=== PATIENT | male | born 1985 | race Hispanic/Latino ===

== ENCOUNTER 2022-08-20 05:55 | Day surgery (SDC) | payer OTHER ==
[2022-08-16 12:24] VITALS: BMI 40.5
[2022-08-20] MEDS ORDERED: Vancomycin 1 GM VIAL ONE (06:34)
[2022-08-20] MEDS ORDERED: fentaNYL PF 100 MCG/2 ML SYRINGE ONE (06:53)
[2022-08-20] MEDS ORDERED: Dexmedetomidine 200 MCG/2 ML VIAL ONE (06:53)
[2022-08-20] MEDS ORDERED: SUGAMMADEX SODIUM 200 MG/2 ML VIAL ONE (06:53)
[2022-08-20] MEDS ORDERED: Sodium Chloride 0.9% 100 ML ONE (07:11)
[2022-08-20] MEDS ORDERED: CEFAZOLIN 2 GM VIAL ONE (07:11)
[2022-08-20 07:26] LABS: #Basophils 0.1 thou/uL (0.0-0.2); #Eosinphils 0.2 thou/uL (0.0-0.7); #Lymphocytes 1.9 thou/uL (1.20-3.40); #Monocytes 0.4 thou/uL (0.11-0.59); #Neutrophils 3.8 thou/uL (1.40-6.50); %Basophils 0.8 % (0.0-1.0); %Eosinophils 3.9 % (0.0-10.0); %Lymphocytes 30.3 % (21.0-51.0); Hemoglobin 15.4 g/dL (14.0-18.0); Mean Corpuscular HGB CONC 33.8 g/dL (32.0-36.0); Mean Corpuscular Hemoglobin 30.8 pg (27.0-31.0); Mean Corpuscular Volume 91.1 fl (78.0-98.0); Mean Platelet Volume 9.5 fL (7.4-10.4); Platelet Count 175 10x3/uL (130-400); RBC Distribution Width 11.6 % (11.5-14.5); Red Blood Cell (RBC) Count 5.01 mill/uL (4.70-6.10); White Blood Cell (WBC) Count 6.4 10x3/uL (4.8-10.8)
[2022-08-20] MEDS ORDERED: Lidocaine 1% PF 5 ML VIAL ONE (07:36)
[2022-08-20] MEDS ORDERED: Glycopyrrolate 0.2 MG/ML 5 ML SYRINGE ONE (07:36)
[2022-08-20] MEDS ORDERED: Rocuronium Bromide 10 MG/ML (10ML VIAL) ONE (07:36)
[2022-08-20] MEDS ORDERED: Ondansetron PF 4 MG/2 ML Vial ONE (07:36)
[2022-08-20] MEDS ORDERED: PHENYLEPHRINE-NS 100 MCG/ML 10 ML SYRINGE ONE (07:36)
[2022-08-20] MEDS ORDERED: NEOSTIGMINE 3 MG/3 ML SYR 3 MG/3 ML SYRINGE ONE (07:36)
[2022-08-20] MEDS ORDERED: Dexamethasone 20 MG/5 ML VIAL ONE (07:36)
[2022-08-20] MEDS ORDERED: PROPOFOL 200 MG/20 ML VIAL ONE (07:36)
[2022-08-20 07:42] LABS: Anion Gap 14 mmol/L (10-20); BUN (Urea Nitrogen) 15 mg/dL (8.9-20.6); Calc. Creatinine Clearance 227 mL/min (70-130); Carbon Dioxide 23 mmol/L (22-29); Chloride 106 mmol/L (98-107); Estimated GFR 113; Glucose 103 mg/dL (70-105); Sodium 139 mmol/L (136-145)
[2022-08-20] MEDS ORDERED: PROPOFOL 20 ML ONE (08:58)
[2022-08-20] MEDS ORDERED: HYDROmorphone 2 MG/ML VIAL ONE (09:18)
[2022-08-20] MEDS ORDERED: Fentanyl 250 MCG/5 ML VIAL ONE (09:44)
[2022-08-20] MEDS ORDERED: hydrALAZINE 20 MG/ML VIAL ONE (10:32)
[2022-08-20] MEDS ORDERED: HYDROcodone/Acetaminophen 5/325 mg Tablet ONE (11:28)
[2022-08-20] MEDS ORDERED: Cyclobenzaprine 10 MG TAB ONE (12:42)
[2022-08-20] MEDS ORDERED: Promethazine HCl 25 MG/ML VIAL ONE (12:42)
== END 2022-08-20 14:45 | disposition home or self-care (01) ==
LOC: SDC 05:55
PROVIDERS: ATTEND Neurological Surgery
PROC: 0SG0071 Fusion of Lumbar Vertebral Joint with Autologous Tissue Substitute, Posterior Approach, Posterior Column, Open Approach (ICD-10-PCS; principal; 2022-08-20)
PROC: 01NB0ZZ Release Lumbar Nerve, Open Approach (ICD-10-PCS; principal; 2022-08-20)
DX: M51.16 Intervertebral disc disorders with radiculopathy, lumbar region (principal); I10 Essential (primary) hypertension; E66.9 Obesity, unspecified; Z68.41 Body mass index [BMI] 40.0-44.9, adult; Z79.899 Other long term (current) drug therapy; Z91.013 Allergy to seafood
CPT/HCPCS: 80048; 85025; 93005; 93010; C1713; C1768; C1776; J0360; J1100; J1170; J2405; J2550; J2704; J3010; J3370; J3490